=== PATIENT | female | born 1955 ===

== ENCOUNTER → 2023-05-25 10:44 | Outpatient (REF) | payer MEDICARE, OTHER, SELFPAY ==
[2023-05-25 19:12] LABS: Urine Albumin Negative (Neg - Trace); Urine Bilirubin Negative (Negative); Urine Character Clear (Clear); Urine Color Yellow; Urine Glucose Negative (Negative); Urine Ketone Negative (Negative); Urine Leukocyte 1+ (Negative); Urine Nitrite Negative (Negative); Urine Occult Blood Negative (Negative); Urine Urobilinogen Negative (Neg - 1+)
[2023-05-25 19:25] LABS: Urine Red Blood Cell 0-2 /HPF (0-2); Urine Squamous Cell >30 /LPF (Few)
[2023-05-25 19:26] LABS: Urine Bacteria Few (Negative); Urine Mucus Moderate
== END ==
LOC: CLAB 10:44
PROVIDERS: ATTENDING PHYSICIAN Nurse Practitioner
DX: N39.0 Urinary tract infection, site not specified (principal)
CPT/HCPCS: 81003; 81015; 87077; 87086